=== PATIENT | male | born 2000 | race Caucasian/White ===

== ENCOUNTER 2020-03-25 15:08 | Day surgery (SDC) | payer OTHER ==
[~2020-03-25] VITALS: Ht 175.3 cm; Wt 87.6 kg
[2020-03-25] VITALS (10 sets, daily range): BP systolic 130–140; BP diastolic 69–94; PULSE 64–99; TEMP 98.1–99.6
[2020-03-25] MEDS ORDERED: SINGULAIR 110 MG/TAB PO (16:49)
[2020-03-25] MEDS ORDERED: ZOO CHEWS1 CTB PO (16:50)
[2020-03-25] MEDS ORDERED: VTAMINC250TA PO (16:50)
[2020-03-25] MEDS ORDERED: ALLEGRA 180MG180 MG PO (16:51)
[2020-03-25] MEDS ORDERED: FLONASE NASAL S16 GM NS (20:42)
[2020-03-26 03:57] VITALS: BP 125/69; PULSE 73; TEMP 97.8
[2020-03-26 07:40] VITALS: BP 127/71; PULSE 67; TEMP 98.4
== END 2020-03-26 08:50 | disposition home or self-care (01) ==
LOC: SDCO 15:08 → COL.RAD 15:08 → EDSTATUS 15:59 → SURG 20:32 → SDCO 03-26 08:50
DX: K35.80 Unspecified acute appendicitis (principal); J45.909 Unspecified asthma, uncomplicated
CPT/HCPCS: OP; J0330; J1100; J1885; J2250; J2405; J2704; J2765; J3010; J7120; Q9967